=== PATIENT | male | born 1950 | race Caucasian/White ===

== ENCOUNTER 2017-11-19 12:14 | Inpatient (IN) | payer MEDICARE, MEDICAID ==
[~2017-11-19] VITALS: Ht 182.9 cm; Wt 69.1 kg
[2017-11-19] MEDS ORDERED: aspirin 81mg tab.chew PO ONE (12:50)
[2017-11-19] MEDS ORDERED: normal saline 1000ML IV soln IVB ONE ×2 (12:50→13:55)
[2017-11-19] MEDS: diatr meglu/diatrizoate 30ml oral sol.-(3 dose) bottle PO SCH ×3 (13:06→15:00)
[2017-11-19 13:13] LABS: BASOPHILS # (AUTO) 0.1 X10'3 (0-0.2); EOSINOPHILS # (AUTO) 0.5 X10'3 (0-0.9); EOSINOPHILS % (AUTO) 4.3 % (0-6); HEMATOCRIT 41.2 % (42.0-52.0); HEMOGLOBIN 13.8 g/dl (14.0-17.9); LYMPHOCYTES # (AUTO) 2.3 X10'3 (1.1-4.8); LYMPHOCYTES % (AUTO) 21.9 % (21-51); MEAN CORPUSCULAR HEMOGLOBIN 30.5 PG (27.0-31.0); MEAN CORPUSCULAR HGB CONC 33.4 % (33.0-36.5); MEAN CORPUSCULAR VOLUME 91.2 FL (78-98); MEAN PLATELET VOLUME 6.9 FL (7.4-10.4); MONOCYTES # (AUTO) 0.9 X10'3 (0-0.9); MONOCYTES % (AUTO) 8.9 % (2-12); NEUTROPHILS # (AUTO) 6.8 X10'3 (1.8-7.7); NEUTROPHILS % (AUTO) 63.9 % (42-75); PLATELET COUNT 389 X10'3 (140-440); RED BLOOD COUNT 4.52 X10'6 (4.70-6.10); WHITE BLOOD COUNT 10.6 X10'3 (4.5-11.0)
[2017-11-19 13:25] LABS: PARTIAL THROMBOPLASTIN TIME 27 SECONDS (22-32); PROTHROMBIN TIME 10.1 SECONDS (9.0-12.0)
[2017-11-19 13:32] LABS: ALANINE AMINOTRANSFERASE 36 U/L (12-78); ALBUMIN 3.3 G/DL (3.4-5.0); ALBUMIN/GLOBULIN RATIO 0.9 (1.1-1.5); ALKALINE PHOSPHATASE 74 IU/L (46-116); ANION GAP 11 (8-16); ASPARTATE AMINO TRANSFERASE 25 U/L (10-37); BILIRUBIN,TOTAL 0.3 MG/DL (0.1-1.0); BLOOD UREA NITROGEN 18 MG/DL (7-18); BUN/CREATININE RATIO 13.7 (5.4-32.0); CALCIUM 8.9 MG/DL (8.5-10.1); CHLORIDE 104 MMOL/L (99-107); CREATININE 1.31 MG/DL (0.60-1.10); GLUCOSE 87 MG/DL (70-104); MAGNESIUM 2.2 MG/DL (1.5-2.4); POTASSIUM 4.4 MMOL/L (3.5-5.1); SODIUM 141 MMOL/L (135-145); TOTAL CARBON DIOXIDE 25.7 MMOL/L (24-32); eGFR 55 ML/MIN
[2017-11-19] MEDS ORDERED: iohexol 350MG/ML 100ml bottle IV ONE (14:01)
[2017-11-19] MEDS ORDERED: NO HOME MEDS (15:56)
[2017-11-19] MEDS ORDERED: heparin 10,000 units/1 ML INJ IV ONE (16:00)
[2017-11-19] MEDS ORDERED: magnesium hydroxide 30ml (MOM) UD suspension PO PRN (16:45)
[2017-11-19] MEDS ORDERED: mag hydrox/Alum hydrox/simeth 30ml oral suspension PO PRN (16:45)
[2017-11-19] MEDS ORDERED: ondansetron/PF 4mg/2ml inj IV PRN (16:45)
[2017-11-19] MEDS ORDERED: morphine 4 MG/ML inj SYRINge IV PRN (16:45)
[2017-11-19] MEDS ORDERED: acetaminophen 325mg tablet PO PRN (16:45)
[2017-11-19 19:00] VITALS: BP 134/71
[2017-11-19] MEDS ORDERED: heparin 10,000 units/1 ML INJ IV PRN ×2 (19:15→19:20)
[2017-11-19 22:51] LABS: PARTIAL THROMBOPLASTIN TIME 54 SECONDS (22-32)
[2017-11-19 23:00] VITALS: BP 105/62
[2017-11-20 03:00] VITALS: BP 108/66
[2017-11-20 05:05] LABS: BASOPHILS # (AUTO) 0.1 X10'3 (0-0.2); BASOPHILS % (AUTO) 1.4 % (0-1); EOSINOPHILS # (AUTO) 0.6 X10'3 (0-0.9); EOSINOPHILS % (AUTO) 7.7 % (0-6); HEMATOCRIT 36.3 % (42.0-52.0); HEMOGLOBIN 12.4 g/dl (14.0-17.9); LYMPHOCYTES # (AUTO) 1.9 X10'3 (1.1-4.8); LYMPHOCYTES % (AUTO) 23.6 % (21-51); MEAN CORPUSCULAR HEMOGLOBIN 30.6 PG (27.0-31.0); MEAN CORPUSCULAR HGB CONC 34.2 % (33.0-36.5); MEAN CORPUSCULAR VOLUME 89.4 FL (78-98); NEUTROPHILS # (AUTO) 4.5 X10'3 (1.8-7.7); NEUTROPHILS % (AUTO) 55.3 % (42-75); PLATELET COUNT 310 X10'3 (140-440); RED BLOOD COUNT 4.07 X10'6 (4.70-6.10); RED CELL DISTRIBUTION WIDTH 13.8 % (11.5-14.5); WHITE BLOOD COUNT 8.1 X10'3 (4.5-11.0)
[2017-11-20 05:27] LABS: ALBUMIN 2.8 G/DL (3.4-5.0); ANION GAP 9 (8-16); BLOOD UREA NITROGEN 11 MG/DL (7-18); BUN/CREATININE RATIO 10.4 (5.4-32.0); CALCIUM 8.4 MG/DL (8.5-10.1); CHLORIDE 107 MMOL/L (99-107); CREATININE 1.06 MG/DL (0.60-1.10); GLUCOSE 89 MG/DL (70-104); POTASSIUM 4.3 MMOL/L (3.5-5.1); SODIUM 141 MMOL/L (135-145); TOTAL CARBON DIOXIDE 24.8 MMOL/L (24-32); eGFR 70 ML/MIN
[2017-11-20 06:00] VITALS: BP 113/61
[2017-11-20 11:00] VITALS: BP 101/60
[2017-11-20 15:00] VITALS: BP 103/60
[2017-11-20 19:00] VITALS: BP 113/72
[2017-11-20 23:00] VITALS: BP 102/65
[2017-11-21 03:00] VITALS: BP 111/72
[2017-11-21 06:00] VITALS: BP 103/60
[2017-11-21 06:04] LABS: BASOPHILS # (AUTO) 0.1 X10'3 (0-0.2); BASOPHILS % (AUTO) 1.4 % (0-1); EOSINOPHILS # (AUTO) 0.5 X10'3 (0-0.9); EOSINOPHILS % (AUTO) 5.8 % (0-6); HEMATOCRIT 36.3 % (42.0-52.0); HEMOGLOBIN 12.3 g/dl (14.0-17.9); LYMPHOCYTES # (AUTO) 2.3 X10'3 (1.1-4.8); LYMPHOCYTES % (AUTO) 27.7 % (21-51); MEAN CORPUSCULAR HEMOGLOBIN 30.4 PG (27.0-31.0); MEAN CORPUSCULAR HGB CONC 33.8 % (33.0-36.5); MEAN CORPUSCULAR VOLUME 89.9 FL (78-98); MEAN PLATELET VOLUME 6.9 FL (7.4-10.4); MONOCYTES % (AUTO) 12.1 % (2-12); NEUTROPHILS # (AUTO) 4.4 X10'3 (1.8-7.7); PLATELET COUNT 321 X10'3 (140-440); RED BLOOD COUNT 4.03 X10'6 (4.70-6.10); RED CELL DISTRIBUTION WIDTH 13.6 % (11.5-14.5); WHITE BLOOD COUNT 8.3 X10'3 (4.5-11.0)
[2017-11-21 06:09] LABS: ALBUMIN 2.8 G/DL (3.4-5.0); ANION GAP 6 (8-16); BLOOD UREA NITROGEN 11 MG/DL (7-18); BUN/CREATININE RATIO 8.9 (5.4-32.0); CALCIUM 8.5 MG/DL (8.5-10.1); CHLORIDE 107 MMOL/L (99-107); CREATININE 1.24 MG/DL (0.60-1.10); GLUCOSE 95 MG/DL (70-104); POTASSIUM 4.4 MMOL/L (3.5-5.1); SODIUM 140 MMOL/L (135-145); TOTAL CARBON DIOXIDE 27.3 MMOL/L (24-32); eGFR 59 ML/MIN
[2017-11-21 11:00] VITALS: BP 111/70
[2017-11-21] MEDS ORDERED: APIX5TAB3 PO (12:18)
== END 2017-11-21 15:25 | disposition home health service (06) | DRG 299 ==
LOC: ER 12:14 → ED HOLD 16:44 → PCU 3S 19:00
PROVIDERS: ADMIT Family Medicine; ATTEND Family Medicine
PROC: B3201ZZ Computerized Tomography (CT Scan) of Thoracic Aorta using Low Osmolar Contrast (ICD-10-PCS; principal; 2017-11-19)
PROC: BW211ZZ Computerized Tomography (CT Scan) of Abdomen and Pelvis using Low Osmolar Contrast (ICD-10-PCS; 2017-11-19)
DX: I82.442 Acute embolism and thrombosis of left tibial vein (principal); I26.99 Other pulmonary embolism without acute cor pulmonale; F17.210 Nicotine dependence, cigarettes, uncomplicated; Z79.01 Long term (current) use of anticoagulants; Z80.0 Family history of malignant neoplasm of digestive organs
CPT/HCPCS: 36415; 71046; 71275; 74177; 80048; 80053; 83735; 85025; 85610; 85730; 87070; 93306; 93971; 96360; 96361; 99285; J1644; J7030; Q9963; Q9967

== ENCOUNTER 2018-08-29 10:24 | Emergency (ER) | payer MEDICARE, OTHER ==
[~2018-08-29] VITALS: Ht 182.9 cm; Wt 72.7 kg
[~2018-08-29 10:24] MED LIST: APIX5TAB3 PO
[2018-08-29 11:16] LABS: BASOPHILS # (AUTO) 0.1 X10'3 (0-0.2); BASOPHILS % (AUTO) 1.2 % (0-1); EOSINOPHILS # (AUTO) 0.2 X10'3 (0-0.9); EOSINOPHILS % (AUTO) 2.6 % (0-6); HEMATOCRIT 44.8 % (42.0-52.0); HEMOGLOBIN 14.9 g/dl (14.0-17.9); LYMPHOCYTES # (AUTO) 2.2 X10'3 (1.1-4.8); LYMPHOCYTES % (AUTO) 28.5 % (21-51); MEAN CORPUSCULAR HEMOGLOBIN 29.3 PG (27.0-31.0); MEAN CORPUSCULAR HGB CONC 33.2 g/dL (33.0-36.5); MEAN PLATELET VOLUME 7.8 FL (7.4-10.4); MONOCYTES # (AUTO) 0.9 X10'3 (0-0.9); MONOCYTES % (AUTO) 10.9 % (2-12); NEUTROPHILS # (AUTO) 4.5 X10'3 (1.8-7.7); NEUTROPHILS % (AUTO) 56.8 % (42-75); PLATELET COUNT 227 X10'3 (140-440); RED BLOOD COUNT 5.09 X10'6 (4.70-6.10); RED CELL DISTRIBUTION WIDTH 14.6 % (11.5-14.5); WHITE BLOOD COUNT 7.9 X10'3 (4.5-11.0)
[2018-08-29 11:33] LABS: ALANINE AMINOTRANSFERASE 118 U/L (12-78); ALBUMIN 3.8 G/DL (3.4-5.0); ALBUMIN/GLOBULIN RATIO 1.1 (1.1-1.5); ALKALINE PHOSPHATASE 223 IU/L (46-116); ANION GAP 5 (8-16); ASPARTATE AMINO TRANSFERASE 51 U/L (10-37); BILIRUBIN,TOTAL 0.6 MG/DL (0.1-1.0); BLOOD UREA NITROGEN 14 MG/DL (7-18); BUN/CREATININE RATIO 11.8 (5.4-32.0); CALCIUM 9.4 MG/DL (8.5-10.1); CHLORIDE 102 MMOL/L (99-107); CREATININE 1.19 MG/DL (0.60-1.10); GLUCOSE 105 MG/DL (70-104); LIPASE 583 U/L (73-393); POTASSIUM 4.6 MMOL/L (3.5-5.1); SODIUM 137 MMOL/L (135-145); TOTAL CARBON DIOXIDE 29.7 MMOL/L (24-32); TOTAL PROTEIN 7.4 G/DL (6.4-8.2); eGFR 61 ML/MIN
[2018-08-29] MEDS ORDERED: cyclobenzaprine 10mg tablet PO ONE (11:35)
[2018-08-29] MEDS ORDERED: iohexol 300mg/ml 100ml inj. ONE (11:42)
[2018-08-29 12:49] LABS: CLARITY,URINE CLEAR (Clear); COLOR,URINE STRAW (Yellow); GLUCOSE, URINE NEGATIVE (Neg); KETONES,URINE NEGATIVE (Neg); LEUKOCYTE ESTERASE ,URINE NEGATIVE (Neg); NITRITES, URINE NEGATIVE (Neg); OCCULT BLOOD,URINE TRACE-INTACT (Neg); PROTEIN,URINE NEGATIVE (Neg); UROBILINOGEN,URINE 0.2 E.U/dL (0.2-1.0)
[2018-08-29 12:53] LABS: UA COLLECTION TYPE CLN CATCH MIDSTREAM
[2018-08-29 13:02] LABS: BACTERIA,URINE NONE SEEN /HPF (Neg); MUCUS STRANDS NONE SEEN /LPF (Neg); RBC,URINE 0-2 /HPF (0-2); SQUAMOUS EPITHELIAL CELL,UR NONE SEEN /LPF (FEW); WBC,URINE 0-4 /HPF (0-4)
[2018-08-29 13:06] VITALS: BP 117/84
[2018-08-29] MEDS ORDERED: CYCL-1 PO (13:12)
== END 2018-08-29 13:46 | disposition home or self-care (01) ==
LOC: ER 10:24
DX: R10.31 Right lower quadrant pain (principal); Z79.899 Other long term (current) drug therapy
CPT/HCPCS: 36415; 74177; 80053; 81001; 83690; 85025; 85610; 93005; 99284; Q9967

== ENCOUNTER 2018-09-26 11:36 | Emergency (ER) | payer MEDICARE, OTHER ==
[~2018-09-26] VITALS: Ht 182.9 cm; Wt 67.2 kg
[~2018-09-26 11:36] MED LIST changes: +CYCL-1 PO
[2018-09-26] MEDS ORDERED: ondansetron/PF 4mg/2ml inj IV ONE (12:20)
[2018-09-26] MEDS ORDERED: morphine 2 MG/ML inj. syringe IV ONE (12:20)
[2018-09-26 12:35] LABS: BASOPHILS # (AUTO) 0.1 X10'3 (0-0.2); BASOPHILS % (AUTO) 1.1 % (0-1); EOSINOPHILS # (AUTO) 0.1 X10'3 (0-0.9); EOSINOPHILS % (AUTO) 1.4 % (0-6); HEMATOCRIT 41.4 % (42.0-52.0); HEMOGLOBIN 13.9 g/dl (14.0-17.9); LYMPHOCYTES % (AUTO) 12.1 % (21-51); MEAN CORPUSCULAR HEMOGLOBIN 29.3 PG (27.0-31.0); MEAN CORPUSCULAR HGB CONC 33.6 g/dL (33.0-36.5); MEAN CORPUSCULAR VOLUME 87.2 FL (78-98); MEAN PLATELET VOLUME 7.1 FL (7.4-10.4); MONOCYTES # (AUTO) 1.2 X10'3 (0-0.9); MONOCYTES % (AUTO) 14.5 % (2-12); NEUTROPHILS # (AUTO) 5.6 X10'3 (1.8-7.7); NEUTROPHILS % (AUTO) 70.9 % (42-75); PLATELET COUNT 225 X10'3 (140-440); RED BLOOD COUNT 4.75 X10'6 (4.70-6.10); RED CELL DISTRIBUTION WIDTH 14.3 % (11.5-14.5); WHITE BLOOD COUNT 7.9 X10'3 (4.5-11.0)
[2018-09-26 12:50] LABS: ALANINE AMINOTRANSFERASE 134 U/L (12-78); ALBUMIN 3.3 G/DL (3.4-5.0); ALBUMIN/GLOBULIN RATIO 0.9 (1.1-1.5); ALKALINE PHOSPHATASE 334 IU/L (46-116); ANION GAP 4 (8-16); ASPARTATE AMINO TRANSFERASE 73 U/L (10-37); BLOOD UREA NITROGEN 15 MG/DL (7-18); BUN/CREATININE RATIO 10.6 (5.4-32.0); CALCIUM 8.9 MG/DL (8.5-10.1); CHLORIDE 91 MMOL/L (99-107); CREATININE 1.42 MG/DL (0.60-1.10); GLUCOSE 131 MG/DL (70-104); POTASSIUM 4.3 MMOL/L (3.5-5.1); SODIUM 124 MMOL/L (135-145); TOTAL PROTEIN 6.9 G/DL (6.4-8.2); eGFR 50 ML/MIN
[2018-09-26 12:53] LABS: TROPONIN I < 0.04 NG/ML (0.0-0.05)
[2018-09-26] MEDS ORDERED: morphine 4 MG/ML inj SYRINge IV ONE ×2 (14:10→17:40)
[2018-09-26 14:14] LABS: CLARITY,URINE CLEAR (Clear); COLOR,URINE YELLOW (Yellow); GLUCOSE, URINE NEGATIVE (Neg); KETONES,URINE TRACE mg/dl (Neg); LEUKOCYTE ESTERASE ,URINE NEGATIVE (Neg); NITRITES, URINE NEGATIVE (Neg); OCCULT BLOOD,URINE TRACE-INTACT (Neg); PH,URINE 6.5 (4.8-8.0); PROTEIN,URINE NEGATIVE (Neg); UROBILINOGEN,URINE 0.2 E.U/dL (0.2-1.0)
[2018-09-26 14:16] LABS: UA COLLECTION TYPE CLN CATCH MIDSTREAM
[2018-09-26 14:28] LABS: BACTERIA,URINE NONE SEEN /HPF (Neg); MUCUS STRANDS NONE SEEN /LPF (Neg); RBC,URINE 0-2 /HPF (0-2); SQUAMOUS EPITHELIAL CELL,UR NONE SEEN /LPF (FEW); WBC,URINE NONE SEEN /HPF (0-4)
[2018-09-26] MEDS ORDERED: ketorolac tromethamine 15mg/ml inj. IV ONE (14:30)
[2018-09-26 14:38] VITALS: BP 125/88
[2018-09-26] MEDS ORDERED: iohexol 350MG/ML 100ml bottle IV ONE (15:38)
[2018-09-26] MEDS ORDERED: FLO0.4C PO (17:42)
[2018-09-26] MEDS ORDERED: HYDR-3965 PO (17:42)
== END 2018-09-26 17:58 | disposition home or self-care (01) ==
LOC: ER 11:36
DX: R10.9 Unspecified abdominal pain (principal); M54.9 Dorsalgia, unspecified; G89.29 Other chronic pain; K59.00 Constipation, unspecified; R53.83 Other fatigue; Z79.899 Other long term (current) drug therapy; Z87.891 Personal history of nicotine dependence; Z85.038 Personal history of other malignant neoplasm of large intestine
CPT/HCPCS: 36415; 71045; 71275; 74177; 80053; 81001; 84484; 85025; 96374; 96375; 96376; 99284; J1885; J2270; J2405; Q9967

== ENCOUNTER 2018-11-20 06:31 | Day surgery (SDC) | payer MEDICARE, OTHER ==
[~2018-11-20] VITALS: Ht 182.9 cm; Wt 62.4 kg
[2018-11-20] VITALS (16 sets, daily range): BP systolic 91–139; BP diastolic 61–79
[2018-11-20] MEDS ORDERED: normal saline 1000ml 1,000 ML IV PRN (07:00)
[2018-11-20 07:40] LABS: BASOPHILS # (AUTO) 0.2 X10'3 (0-0.2); EOSINOPHILS # (AUTO) 0.2 X10'3 (0-0.9); EOSINOPHILS % (AUTO) 0.8 % (0-6); HEMATOCRIT 40.8 % (42.0-52.0); HEMOGLOBIN 13.6 g/dl (14.0-17.9); LYMPHOCYTES # (AUTO) 1.8 X10'3 (1.1-4.8); LYMPHOCYTES % (AUTO) 9.5 % (21-51); MEAN CORPUSCULAR HEMOGLOBIN 29.7 PG (27.0-31.0); MEAN CORPUSCULAR HGB CONC 33.4 g/dL (33.0-36.5); MEAN CORPUSCULAR VOLUME 88.7 FL (78-98); MEAN PLATELET VOLUME 6.7 FL (7.4-10.4); MONOCYTES # (AUTO) 1.8 X10'3 (0-0.9); MONOCYTES % (AUTO) 9.4 % (2-12); NEUTROPHILS % (AUTO) 79.3 % (42-75); PLATELET COUNT 363 X10'3 (140-440); RED BLOOD COUNT 4.59 X10'6 (4.70-6.10); RED CELL DISTRIBUTION WIDTH 15.3 % (11.5-14.5); WHITE BLOOD COUNT 18.9 X10'3 (4.5-11.0)
[2018-11-20] MEDS ORDERED: OXYC-150 PO (07:48)
[2018-11-20 07:49] LABS: ALBUMIN 2.7 G/DL (3.4-5.0); ANION GAP 12 (8-16); BLOOD UREA NITROGEN 18 MG/DL (7-18); BUN/CREATININE RATIO 16.7 (5.4-32.0); CALCIUM 8.7 MG/DL (8.5-10.1); CHLORIDE 86 MMOL/L (99-107); CREATININE 1.08 MG/DL (0.60-1.10); GLUCOSE 117 MG/DL (70-104); SODIUM 122 MMOL/L (135-145); eGFR 68 ML/MIN
[2018-11-20] MEDS ORDERED: BICA50TA7 PO (07:49)
[2018-11-20] MEDS ORDERED: HYDR-4353 PO (07:49)
[2018-11-20 07:53] LABS: POTASSIUM 4.9 MMOL/L (3.5-5.1)
[2018-11-20] MEDS ORDERED: midazolam 2 mg/2 ml injection ONE (08:13)
[2018-11-20] MEDS ORDERED: fentaNYL/PF 50MCG/1 ML 2ML syringe ONE (08:13)
[2018-11-20] MEDS ORDERED: gelatin sponge, absorbable (Gelfoam 12-7MM) sponge TP ONE (08:43)
[2018-11-20] MEDS ORDERED: HYDROcodone/acetaminophen 5mg/325mg tablet PO PRN ×2 (09:00)
[2018-11-20 11:35] LABS: TOTAL CELLS COUNTED 100
[2018-11-20 11:36] LABS: PLATELET ESTIMATE NORMAL
[2018-11-20] MEDS ORDERED: gelatin sponge, absorbable (Gelfoam 100) sponge TP ONE (15:20)
[2018-12-01] MEDS ORDERED: APIX2.5T PO (07:17)
[2018-12-01] MEDS ORDERED: MORP-92 PO (07:17)
[2018-12-01] MEDS ORDERED: HYDROMORPHONE PO (07:17)
== END 2018-11-20 13:00 | disposition home or self-care (01) ==
LOC: SSTAY O 06:31
PROVIDERS: ATTEND Radiology Vascular & Interventional Radiology
DX: K73.9 Chronic hepatitis, unspecified (principal); K76.0 Fatty (change of) liver, not elsewhere classified; K76.89 Other specified diseases of liver; F17.290 Nicotine dependence, other tobacco product, uncomplicated; Z98.890 Other specified postprocedural states; Z79.899 Other long term (current) drug therapy
CPT/HCPCS: 36415; 47000; 77012; 80048; 85025; 85610; 88341; 88342; 99152; 99153; J2250; J3010; J7030; 88307; 88313

== ENCOUNTER 2018-12-01 09:56 | Inpatient (IN) | payer MEDICARE, OTHER ==
[~2018-12-01] VITALS: Ht 185.4 cm; Wt 54.0 kg
[~2018-12-01 09:56] MED LIST changes: -HYDR4TAB45 PO; -normal saline 1000ml 1,000 ML IV ONE; -normal saline 1000ml 1,000 ML IV SCH
--- NOTE | 2018-12-01 10:59 | NUR ---
AM LABS PRINTED AND ON CHART
[2018-12-01] MEDS ORDERED: CefTRIAXone 2gm/D5W 50ml 50 ML IV ONE (11:05)
[2018-12-01 11:31] LABS: BASOPHILS # (AUTO) 0.1 X10'3 (0-0.2); BASOPHILS % (AUTO) 0.4 % (0-1); EOSINOPHILS # (AUTO) 0.1 X10'3 (0-0.9); EOSINOPHILS % (AUTO) 0.2 % (0-6); HEMATOCRIT 38.8 % (42.0-52.0); LYMPHOCYTES # (AUTO) 0.9 X10'3 (1.1-4.8); LYMPHOCYTES % (AUTO) 3.9 % (21-51); MEAN CORPUSCULAR HEMOGLOBIN 29.8 PG (27.0-31.0); MEAN CORPUSCULAR HGB CONC 33.6 g/dL (33.0-36.5); MEAN CORPUSCULAR VOLUME 88.6 FL (78-98); MEAN PLATELET VOLUME 6.6 FL (7.4-10.4); MONOCYTES # (AUTO) 1.4 X10'3 (0-0.9); MONOCYTES % (AUTO) 6.3 % (2-12); NEUTROPHILS # (AUTO) 19.8 X10'3 (1.8-7.7); NEUTROPHILS % (AUTO) 89.2 % (42-75); PLATELET COUNT 251 X10'3 (140-440); RED BLOOD COUNT 4.38 X10'6 (4.70-6.10); RED CELL DISTRIBUTION WIDTH 15.8 % (11.5-14.5); WHITE BLOOD COUNT 22.2 X10'3 (4.5-11.0)
--- NOTE | 2018-12-01 11:40 | NUR ---
TO CT SCAN VIA GUERMEGAN WITH TECH
[2018-12-01 11:48] LABS: PARTIAL THROMBOPLASTIN TIME 25 SECONDS (22-32)
[2018-12-01 12:01] LABS: ALANINE AMINOTRANSFERASE 125 U/L (12-78); ALBUMIN 2.3 G/DL (3.4-5.0); ALBUMIN/GLOBULIN RATIO 0.6 (1.1-1.5); ANION GAP 11 (8-16); ASPARTATE AMINO TRANSFERASE 127 U/L (10-37); BILIRUBIN,TOTAL 4.2 MG/DL (0.1-1.0); BLOOD UREA NITROGEN 33 MG/DL (7-18); CALCIUM 8.1 MG/DL (8.5-10.1); CHLORIDE 94 MMOL/L (99-107); CREATININE 1.27 MG/DL (0.60-1.10); GLUCOSE 160 MG/DL (70-104); MAGNESIUM 2.3 MG/DL (1.5-2.4); POTASSIUM 4.9 MMOL/L (3.5-5.1); SODIUM 131 MMOL/L (135-145); TOTAL CARBON DIOXIDE 25.6 MMOL/L (24-32); TOTAL PROTEIN 5.9 G/DL (6.4-8.2); TROPONIN I < 0.04 NG/ML (0.0-0.05); eGFR 57 ML/MIN
[2018-12-01 12:03] LABS: ETHANOL < 0.010 GM/DL (0.0-0.010)
[2018-12-01 12:21] LABS: ALKALINE PHOSPHATASE 3340 IU/L (46-116)
[2018-12-01 12:40] LABS: URINE AMPHETAMINE SCREEN NEGATIVE (Neg); URINE BARBITUATE SCREEN NEGATIVE (Neg); URINE BENZODIAZEPINES SCREEN NEGATIVE (Neg); URINE CANNABINOID SCREEN POSITIVE (Neg); URINE COCAINE SCREEN NEGATIVE (Neg); URINE METHADONE SCREEN NEGATIVE (Neg); URINE OPIATE SCREEN POSITIVE (Neg); URINE PHENCYCLIDINE SCREEN NEGATIVE (Neg)
[2018-12-01 12:50] LABS: CLARITY,URINE CLOUDY (Clear); GLUCOSE, URINE NEGATIVE (Neg); KETONES,URINE 15 mg/dl (Neg); LEUKOCYTE ESTERASE ,URINE NEGATIVE (Neg); NITRITES, URINE NEGATIVE (Neg); OCCULT BLOOD,URINE LARGE (Neg); PROTEIN,URINE 30 mg/dl (Neg)
--- NOTE | 2018-12-01 12:55 | NUR ---
HYDROMORPHONE 4 MG TAB HOME MED AT BEDSIDE. OKD BY DR. MENJIVAR PAIN ON PAINSCALE 12/23
[2018-12-01 12:57] LABS: COLOR,URINE AMBER (Yellow); UA COLLECTION TYPE CLN CATCH MIDSTREAM
[2018-12-01 13:01] LABS: AMORPHOUS URATES 1+; BACTERIA,URINE NONE SEEN /HPF (Neg); HYALINE CASTS 0-3 /LPF (NEGATIVE); MUCUS STRANDS FEW /LPF (Neg); RBC,URINE TNTC /HPF (0-2); SQUAMOUS EPITHELIAL CELL,UR FEW /LPF (FEW); TRANSITIONAL EPI CELLS,URINE FEW /HPF; WBC,URINE 0-4 /HPF (0-4)
[2018-12-01 13:02] LABS: FINE GRANULAR CAST 0-3 /LPF (NEGATIVE)
[2018-12-01 13:03] LABS: RENAL CELLS, URINE FEW /HPF
[2018-12-01] MEDS ORDERED: normal saline 1000ML IV soln IVB ONE (13:05)
[2018-12-01] MEDS ORDERED: HYDR4TAB45 PO (13:26)
[2018-12-01] MEDS ORDERED: magnesium hydroxide 30ml (MOM) UD suspension PO PRN (13:30)
[2018-12-01] MEDS ORDERED: morphine 2 MG/ML inj. syringe IV PRN (13:30)
[2018-12-01] MEDS ORDERED: ondansetron/PF 4mg/2ml inj IV PRN (13:30)
[2018-12-01] MEDS ORDERED: acetaminophen 325mg tablet PO PRN ×2 (13:30)
[2018-12-01] MEDS ORDERED: HYDROcodone/acetaminophen 5mg/325mg tablet PO PRN (13:30)
[2018-12-01] MEDS ORDERED: mag hydrox/Alum hydrox/simeth 30ml oral suspension PO PRN (13:30)
[2018-12-01 17:35] VITALS: BP 142/91
[2018-12-01] MEDS: normal saline 1000ml 1,000 ML IV SCH ×2 (17:42→23:26)
--- NOTE | 2018-12-01 18:38 | NUR ---
Patient in room PCU 3025g. I have received report from RUFUS Zaldivar and had the opportunity to ask questions and assume patient care. Patient observed to be shouting out and is confused at this time. Patient keeps stating, "what the hell is going on?!" Patient has not consumed evening meal. PCT to assist in feeding patient, but no orders for feeder at this time. Will continue to monitor closely.
[2018-12-01 19:00] VITALS: BP 133/86
[2018-12-01] MEDS: apixaban 2.5mg tablet PO SCH (20:41)
[2018-12-01] MEDS: morphine ER 15mg tablet PO SCH (20:41)
[2018-12-01] MEDS: docusate sod 100mg capsule PO SCH (20:41)
[2018-12-01 23:00] VITALS: BP 114/65
[2018-12-01] MEDS: morphine 2 MG/ML inj. syringe IV PRN (23:16)
[2018-12-02 03:00] VITALS: BP 117/77
[2018-12-02 05:14] LABS: BASOPHILS % (AUTO) 0.3 % (0-1); EOSINOPHILS # (AUTO) 0.1 X10'3 (0-0.9); EOSINOPHILS % (AUTO) 0.9 % (0-6); HEMATOCRIT 35.7 % (42.0-52.0); HEMOGLOBIN 11.9 g/dl (14.0-17.9); LYMPHOCYTES % (AUTO) 6.3 % (21-51); MEAN CORPUSCULAR HEMOGLOBIN 29.6 PG (27.0-31.0); MEAN CORPUSCULAR HGB CONC 33.3 g/dL (33.0-36.5); MEAN CORPUSCULAR VOLUME 88.9 FL (78-98); MEAN PLATELET VOLUME 6.9 FL (7.4-10.4); MONOCYTES # (AUTO) 1.3 X10'3 (0-0.9); NEUTROPHILS # (AUTO) 13.3 X10'3 (1.8-7.7); NEUTROPHILS % (AUTO) 84.5 % (42-75); PLATELET COUNT 204 X10'3 (140-440); RED BLOOD COUNT 4.02 X10'6 (4.70-6.10); WHITE BLOOD COUNT 15.7 X10'3 (4.5-11.0)
[2018-12-02 05:19] LABS: ALBUMIN 2.1 G/DL (3.4-5.0); ANION GAP 9 (8-16); BLOOD UREA NITROGEN 31 MG/DL (7-18); BUN/CREATININE RATIO 30.4 (5.4-32.0); CHLORIDE 102 MMOL/L (99-107); CREATININE 1.02 MG/DL (0.60-1.10); GLUCOSE 146 MG/DL (70-104); POTASSIUM 4.5 MMOL/L (3.5-5.1); SODIUM 137 MMOL/L (135-145); TOTAL CARBON DIOXIDE 26.3 MMOL/L (24-32); eGFR 73 ML/MIN
[2018-12-02] MEDS: normal saline 1000ml 1,000 ML IV SCH ×2 (06:36→19:26)
--- NOTE | 2018-12-02 06:37 | NUR ---
Patient in room PCU 3027. I have received report from Lenin HOOPER and had the opportunity to ask questions and assume patient care.
--- NOTE | 2018-12-02 06:39 | NUR ---
Problems reprioritized. Patient report given, questions answered & plan of care reviewed with RUFUS Gutierrez and RUFUS Flaherty.
[2018-12-02 07:00] VITALS: BP 118/76
[2018-12-02] MEDS: morphine ER 15mg tablet PO SCH ×2 (07:51→20:19)
[2018-12-02] MEDS: apixaban 2.5mg tablet PO SCH ×2 (07:51→20:13)
[2018-12-02] MEDS: docusate sod 100mg capsule PO SCH ×2 (07:51→20:13)
[2018-12-02] MEDS: morphine 2 MG/ML inj. syringe IV PRN ×3 (07:56→22:18)
[2018-12-02] MEDS ORDERED: BICALUTAMIDE PO SCH (08:00)
[2018-12-02 11:00] VITALS: BP 122/79
--- NOTE | 2018-12-02 12:02 | NUR ---
Paged hospitalist "Brenda [phone]- Room 3027 Javier Buchanan-please call bhavin (nonemergent) thank you" Waiting transportation planning engineer back
--- NOTE | 2018-12-02 13:30 | NUR ---
Paged hospitalist again, "bernadette [phone]- room 3027 A please call bhavin regarding elevated heartrate" Wish to make him aware of ST sustained. Received callback from , made aware of ST 130's, states to obtain EKG to confirm ST, if HR doesn't resolve in a few hours (2 hours) then call back. Also received orders for M.O.M 30 ml BID r/t constipation, patient family states hasn't had BM in 2 weeks. Noted poor appetite and 50 lbs recent wt. loss.
--- NOTE | 2018-12-02 14:13 | NUR ---
Paged hospitalist for an FYI message, "bernadette [phone]- FYI room 1651T Javier Monet EKG was indeed ST, will monitor and let you know if sustained passed 2 hours."
[2018-12-02 15:00] VITALS: BP 116/72
--- NOTE | 2018-12-02 15:59 | NUR ---
Malnutrition consult: Per documented wt hx pt -38 lbs since November 2017, this is severe wt loss of 25% in one year. Pt previously on regular diet which was changed to pureed diet with no BSS, ST has been consulted. Pt documented with 50/25/100% PO intake x 1 meal however with 0% PO intake x 2 meals. Attempted visit with pt at bedside however pt was sleeping and did not wake with verbal cues. Pt with visible fat and muscle wasting. Pt meets criteria for malnutrition, MD notified. Pt would benefit from ONS, will f/u for appropriate ONS pending BSS. Pt brought in to get a Port-A-Cath placed by IR and admit for concerns for possible sepsis. Pt with hx of stage IV colon cancer with liver metastases and pt awaiting chemo d/t possible prostate cancer with bone mets per H&P. Pt with low Binh of 12, per physical assessment with reddened sacrum, wound care has been consulted. Pt provided with written protein education and malnutrition education with recommendations for ONS following discharge, ONS coupons, and RD contact information. Per RN notes patient's family reporting no BM x 2 weeks however pt documented with LBM 12/01 per pt statement. Routine Colace and MoM has been added to med list. Will continue to follow. Recommendations: 1) Advance diet per ST recs pending BSS 2) Provide appropriate ONS pending BSS 3) Routine bowel care 4) Wt per rx Addendum: 12/02/18 at [address] Amended: Links added.
--- NOTE | 2018-12-02 16:07 | NUR ---
Called wound care nursing for consult now that pictures have been taken.
--- NOTE | 2018-12-02 17:24 | NUR ---
Paged , "bernadette [phone]- heart rate sustained ST for room 3027 A, orders?" Waiting on callback, wish to make MD aware of HR sustained low 120's.
--- NOTE | 2018-12-02 17:45 | NUR ---
Paged hospitalist again, waiting on callback
--- NOTE | 2018-12-02 18:16 | NUR ---
Problems reprioritized. Patient report given, questions answered & plan of care reviewed with Lenin HOOPER.
[2018-12-02 19:00] VITALS: BP 117/72
--- NOTE | 2018-12-02 19:01 | NUR ---
Patient in room PCU 4296p. I have received report from RUFUS Gutierrez and had the opportunity to ask questions and assume patient care. Patient asleep for bedside report and stable at this time. 20G L FA with 100 mL/NS infusing per provider order. 3L NC. RN assisted with evening meal. Will continue to monitor closely.
--- NOTE | 2018-12-02 19:34 | NUR ---
Dr. Torres notified of patient's elevated HR of 122 at 1900. No new orders at this time. Will continue to monitor closely.
[2018-12-02] MEDS: magnesium hydroxide 30ml (MOM) UD suspension PO SCH (20:13)
--- NOTE | 2018-12-02 22:46 | NUR ---
weed science research technician observed patient's HR in 140's at 2130. At this time patient was being repositioned by nursing staff. 2199 140 HR sustained. 2mg/1mL Morphine IV administered. 2229 139 HR sustained. Telephone call to Dr. Torres with no answer. Will attempt to call again in 10 minutes.
[2018-12-02 23:00] VITALS: BP 115/75
--- NOTE | 2018-12-02 23:00 | NUR ---
Spoke to Dr. Torres via telephone. No new orders at this time. Will continue to monitor closely.
[2018-12-03] VITALS (7 sets, daily range): BP systolic 109–135; BP diastolic 66–88
[2018-12-03] MEDS: HYDROcodone/acetaminophen 10/325mg tab PO PRN ×3 (00:47→21:20)
[2018-12-03] MEDS: normal saline 1000ml 1,000 ML IV SCH ×2 (03:28→14:05)
[2018-12-03] MEDS: morphine 2 MG/ML inj. syringe IV PRN ×2 (04:23→10:21)
[2018-12-03 04:48] LABS: BASOPHILS # (AUTO) 0.1 X10'3 (0-0.2); BASOPHILS % (AUTO) 0.5 % (0-1); EOSINOPHILS % (AUTO) 0.2 % (0-6); HEMATOCRIT 35.3 % (42.0-52.0); HEMOGLOBIN 11.7 g/dl (14.0-17.9); LYMPHOCYTES # (AUTO) 0.9 X10'3 (1.1-4.8); LYMPHOCYTES % (AUTO) 5.7 % (21-51); MEAN CORPUSCULAR HEMOGLOBIN 29.8 PG (27.0-31.0); MEAN CORPUSCULAR HGB CONC 33.1 g/dL (33.0-36.5); MEAN PLATELET VOLUME 7.1 FL (7.4-10.4); MONOCYTES % (AUTO) 6.3 % (2-12); NEUTROPHILS # (AUTO) 13.5 X10'3 (1.8-7.7); NEUTROPHILS % (AUTO) 87.3 % (42-75); PLATELET COUNT 199 X10'3 (140-440); RED BLOOD COUNT 3.92 X10'6 (4.70-6.10); RED CELL DISTRIBUTION WIDTH 16.3 % (11.5-14.5); WHITE BLOOD COUNT 15.4 X10'3 (4.5-11.0)
[2018-12-03 05:12] LABS: ALBUMIN 2.1 G/DL (3.4-5.0); ANION GAP 9 (8-16); BLOOD UREA NITROGEN 30 MG/DL (7-18); BUN/CREATININE RATIO 31.6 (5.4-32.0); CALCIUM 8.1 MG/DL (8.5-10.1); CHLORIDE 105 MMOL/L (99-107); CREATININE 0.95 MG/DL (0.60-1.10); GLUCOSE 167 MG/DL (70-104); POTASSIUM 4.7 MMOL/L (3.5-5.1); SODIUM 142 MMOL/L (135-145); TOTAL CARBON DIOXIDE 28.5 MMOL/L (24-32); eGFR 79 ML/MIN
[2018-12-03 05:59] LABS: TOTAL CELLS COUNTED 100
[2018-12-03 06:02] LABS: ANISOCYTOSIS 1+; PLATELET ESTIMATE NORMAL
--- NOTE | 2018-12-03 06:37 | NUR ---
Problems reprioritized. Patient report given, questions answered & plan of care reviewed with RUFUS Abbott.
--- NOTE | 2018-12-03 07:45 | NUR ---
Patient in room PCU 3027. I have received report from Lenin HOOPER and had the opportunity to ask questions and assume patient care.
--- NOTE | 2018-12-03 07:56 | NUR ---
Patient in room PCU 3027. I have received report from Lenin HOOPER and had the opportunity to ask questions and assume patient care.
[2018-12-03] MEDS: morphine ER 15mg tablet PO SCH ×2 (08:05→20:06)
[2018-12-03] MEDS: CefTRIAXone 2gm/D5W 50ml 50 ML IV SCH (09:48)
[2018-12-03] MEDS: docusate sod 100mg capsule PO SCH ×2 (09:48→20:06)
[2018-12-03] MEDS: apixaban 2.5mg tablet PO SCH ×2 (09:48→20:06)
[2018-12-03] MEDS: magnesium hydroxide 30ml (MOM) UD suspension PO SCH ×2 (09:48→20:06)
[2018-12-03] MEDS: guaiFENesin ER 600mg tablet PO SCH ×2 (11:07→20:06)
[2018-12-03] MEDS: azithromycin/NS 500mg/250ml 250 ML IV SCH (11:21)
--- NOTE | 2018-12-03 11:22 | NUR ---
F/u: Pt s/p BSS 12/[address] andre to continue pureed food with thin liquids and states pt needs reminders to sit up when eating and drinking. Pt would benefit from Ensure Enlive SWATHI, notified. [facility]NS to be sent [facility] Recommend Ensure pudding TID to provide additional kcal, dietary notified. Addendum: 12/03/18 at [address] Amended: Links added.
--- NOTE | 2018-12-03 13:50 | NUR ---
Calorie Count: Pt refused lunch today w/ 0-25% documented PO in EMR. Not receiving meal sheets from floor so unable to calculate exact kcals but pt clearly not meeting needs. Ensure pudding TIDWM and pending MD verification for ensure enlive TIDWM to be sent on trays. Addendum: 12/03/18 at [address] Amended: Links added.
--- NOTE | 2018-12-03 17:03 | NUR ---
Notified secretary to board of commissioners to order [employer]a bed 2 bed per Wound care recommendations.
[2018-12-03] MEDS ORDERED: ipratropium/albuterol 3ml nebule NEB PRN (17:40)
[2018-12-03] MEDS: lactose-reduced food (Ensure Enlive) - 237ml bottle PO SCH (18:00)
--- NOTE | 2018-12-03 18:56 | NUR ---
Problems reprioritized. Patient report given, questions answered & plan of care reviewed with SEE HOOPER.
[2018-12-04] MEDS: normal saline 1000ml 1,000 ML IV SCH (00:04)
[2018-12-04] MEDS: morphine 2 MG/ML inj. syringe IV PRN (01:50)
[2018-12-04 02:00] VITALS: BP 103/82
[2018-12-04 06:00] VITALS: BP 128/82
--- NOTE | 2018-12-04 06:00 | NUR ---
Patient in room PCU 3010. I have received report from Lyndsay HOOPER and had the opportunity to ask questions and assume patient care.
[2018-12-04 06:11] LABS: ANION GAP 8 (8-16); BLOOD UREA NITROGEN 27 MG/DL (7-18); BUN/CREATININE RATIO 32.9 (5.4-32.0); CALCIUM 8.2 MG/DL (8.5-10.1); CHLORIDE 111 MMOL/L (99-107); CREATININE 0.82 MG/DL (0.60-1.10); GLUCOSE 169 MG/DL (70-104); POTASSIUM 4.6 MMOL/L (3.5-5.1); SODIUM 146 MMOL/L (135-145); TOTAL CARBON DIOXIDE 26.7 MMOL/L (24-32); eGFR > 90 ML/MIN
[2018-12-04 06:16] LABS: BASOPHILS % (AUTO) 0.3 % (0-1); EOSINOPHILS % (AUTO) 0.3 % (0-6); HEMATOCRIT 34.8 % (42.0-52.0); HEMOGLOBIN 11.6 g/dl (14.0-17.9); LYMPHOCYTES # (AUTO) 0.7 X10'3 (1.1-4.8); LYMPHOCYTES % (AUTO) 7.1 % (21-51); MEAN CORPUSCULAR HEMOGLOBIN 30.4 PG (27.0-31.0); MEAN CORPUSCULAR HGB CONC 33.3 g/dL (33.0-36.5); MEAN CORPUSCULAR VOLUME 91.3 FL (78-98); MONOCYTES # (AUTO) 0.7 X10'3 (0-0.9); MONOCYTES % (AUTO) 7.5 % (2-12); NEUTROPHILS # (AUTO) 8.2 X10'3 (1.8-7.7); NEUTROPHILS % (AUTO) 84.8 % (42-75); PLATELET COUNT 163 X10'3 (140-440); RED BLOOD COUNT 3.81 X10'6 (4.70-6.10); RED CELL DISTRIBUTION WIDTH 16.5 % (11.5-14.5); WHITE BLOOD COUNT 9.7 X10'3 (4.5-11.0)
--- NOTE | 2018-12-04 06:49 | NUR ---
Problems reprioritized. Patient report given, questions answered & plan of care reviewed with RUFUS Mcconnell.
[2018-12-04 10:01] LABS: TOTAL CELLS COUNTED 100
[2018-12-04 10:06] LABS: ANISOCYTOSIS 1+; PLATELET ESTIMATE NORMAL; TOXIC GRANULATION 1+
[2018-12-04] MEDS: guaiFENesin ER 600mg tablet PO SCH ×2 (10:12→20:16)
[2018-12-04] MEDS: morphine ER 15mg tablet PO SCH ×2 (10:12→20:16)
[2018-12-04] MEDS: CefTRIAXone 2gm/D5W 50ml 50 ML IV SCH (10:12)
[2018-12-04] MEDS: magnesium hydroxide 30ml (MOM) UD suspension PO SCH ×2 (10:12→20:16)
[2018-12-04] MEDS: docusate sod 100mg capsule PO SCH ×2 (10:12→20:16)
[2018-12-04] MEDS: apixaban 2.5mg tablet PO SCH ×2 (10:12→20:15)
[2018-12-04 11:00] VITALS: BP 92/64
[2018-12-04] MEDS: azithromycin/NS 500mg/250ml 250 ML IV SCH (11:47)
[2018-12-04] MEDS ORDERED: normal saline 1000ml 1,000 ML IV ONE (14:45)
--- NOTE | 2018-12-04 14:55 | NUR ---
Calorie count: Pending detailed documentation from RN. Per RN pt only took a few bites at lunch today with patient's SO assisting in eating however nurses aide to encourage pt to eat more and further assist with eating. Pt documented with only 50% PO intake of starch at breakfast this morning and 25% PO intake at dinner last night. Pt not meeting nutrient needs with PO intake. ONS still pending MD verification in [facility]. [facility] 11/27 with routine Colace and MoM, recommend prune juice with dinner, d/w dietary. Addendum: 12/04/18 at [address] Amended: Links added.
[2018-12-04 15:00] VITALS: BP 96/62
--- NOTE | 2018-12-04 15:39 | NUR ---
PAGER ID: [phone] MESSAGE: [phone] MELINDA- RAPID BEING CALLED FOR O2 SAT, LOW BP, MOTTLING TO BLE. MARLIOU HARRIS Addendum: 12/04/18 at 1539 by Marilou Rivero RN Amended: Links added.
[2018-12-04 16:01] LABS: ABG BASE EXCESS 0.9 mmol/L (-2.0-3.0); ABG HCO3 29.6 mmol/L (22.0-26.0); ABG OXYGEN SATURATION 97.9 % (95-98); ABG PCO2 (T) 68.3 mmHg (35.0-45.0); ABG PH (T) 7.254 (7.350-7.450); ABG PO2 (T) 119.8 mmHg (83-108); ALLEN'S TEST Positive; FCOHb 0.3 % (0.5-1.5); FLOW 15 L/min; FMetHb 0.4 % (0.3-1.12); FO2Hb 97.2 % (94-100); TOTAL HEMOGLOBIN 12.3 G/dl (14.0-17.9)
--- NOTE | 2018-12-04 16:19 | NUR ---
Second page to Dr Blackwell re:Room 3010 lenny Haddad was called bipap and IV Lasix requested by ICU nurse, please advise Enedina [phone], first page was sent by Berna HOOPER
[2018-12-04 17:14] LABS: TROPONIN I < 0.04 NG/ML (0.0-0.05)
[2018-12-04 17:35] LABS: ABG BASE EXCESS 3.5 mmol/L (-2.0-3.0); ABG HCO3 29.5 mmol/L (22.0-26.0); ABG PCO2 (T) 51.1 mmHg (35.0-45.0); ABG PH (T) 7.379 (7.350-7.450); ABG PO2 (T) 62.9 mmHg (83-108); ALLEN'S TEST Positive; FCOHb 0.3 % (0.5-1.5); FMetHb 0.2 % (0.3-1.12); FO2Hb 92.5 % (94-100); MINUTE VOLUME 16 L/min; RESPIRATORY RATE 16 b/min; RESPIRATORY RATE (OBSERVED) 35 b/min; TOTAL HEMOGLOBIN 11.9 G/dl (14.0-17.9)
--- NOTE | 2018-12-04 18:00 | NUR ---
Problems reprioritized. Patient report given, questions answered & plan of care reviewed with Arjun HOOPER.
[2018-12-04 19:00] VITALS: BP 111/71
[2018-12-04] MEDS: lactobacillus rhamnosus 10,000 MMU CELLS/CAPSULE PO SCH (20:15)
[2018-12-04 23:00] VITALS: BP 110/65
[2018-12-05] VITALS (8 sets, daily range): BP systolic 77–123; BP diastolic 45–79
[2018-12-05 05:32] LABS: BASOPHILS % (AUTO) 0.2 % (0-1); EOSINOPHILS % (AUTO) 0.5 % (0-6); HEMATOCRIT 34.8 % (42.0-52.0); HEMOGLOBIN 11.6 g/dl (14.0-17.9); LYMPHOCYTES # (AUTO) 0.8 X10'3 (1.1-4.8); LYMPHOCYTES % (AUTO) 7.8 % (21-51); MEAN CORPUSCULAR HEMOGLOBIN 30.3 PG (27.0-31.0); MEAN CORPUSCULAR HGB CONC 33.4 g/dL (33.0-36.5); MEAN CORPUSCULAR VOLUME 90.6 FL (78-98); MEAN PLATELET VOLUME 7.4 FL (7.4-10.4); MONOCYTES # (AUTO) 0.9 X10'3 (0-0.9); MONOCYTES % (AUTO) 9.2 % (2-12); NEUTROPHILS # (AUTO) 8.4 X10'3 (1.8-7.7); NEUTROPHILS % (AUTO) 82.3 % (42-75); PLATELET COUNT 165 X10'3 (140-440); RED BLOOD COUNT 3.84 X10'6 (4.70-6.10); RED CELL DISTRIBUTION WIDTH 17.6 % (11.5-14.5); WHITE BLOOD COUNT 10.2 X10'3 (4.5-11.0)
[2018-12-05 05:38] LABS: ALBUMIN 1.8 G/DL (3.4-5.0); ANION GAP 3 (8-16); BLOOD UREA NITROGEN 29 MG/DL (7-18); BUN/CREATININE RATIO 35.4 (5.4-32.0); CALCIUM 8.3 MG/DL (8.5-10.1); CHLORIDE 114 MMOL/L (99-107); CREATININE 0.82 MG/DL (0.60-1.10); GLUCOSE 182 MG/DL (70-104); POTASSIUM 4.4 MMOL/L (3.5-5.1); SODIUM 150 MMOL/L (135-145); TOTAL CARBON DIOXIDE 32.7 MMOL/L (24-32); eGFR > 90 ML/MIN
--- NOTE | 2018-12-05 06:00 | NUR ---
Patient in room PCU 3010. I have received report from Arjun HOOPER and had the opportunity to ask questions and assume patient care.
[2018-12-05] MEDS ORDERED: furosemide 20 MG/2 ML vial IV ONE (07:50)
[2018-12-05] MEDS: guaiFENesin ER 600mg tablet PO SCH ×2 (08:00→19:35)
[2018-12-05] MEDS: apixaban 2.5mg tablet PO SCH ×2 (08:00→20:00)
[2018-12-05] MEDS: docusate sod 100mg capsule PO SCH ×2 (08:00→20:00)
[2018-12-05] MEDS: lactobacillus rhamnosus 10,000 MMU CELLS/CAPSULE PO SCH ×2 (08:00→20:00)
[2018-12-05] MEDS: azithromycin 250mg tablet PO SCH (08:00)
[2018-12-05] MEDS: magnesium hydroxide 30ml (MOM) UD suspension PO SCH ×2 (08:00→20:00)
[2018-12-05 08:36] LABS: ANISOCYTOSIS 1+; NUCLEATED RED BLOOD CELLS 1 /100WBC (0-0); PLATELET ESTIMATE NORMAL; TOTAL CELLS COUNTED 100
[2018-12-05] MEDS: CefTRIAXone 2gm/D5W 50ml 50 ML IV SCH (09:25)
[2018-12-05] MEDS: morphine ER 15mg tablet PO SCH (09:32)
--- NOTE | 2018-12-05 12:21 | NUR ---
Calorie count day 3: Received documentation from RN containing PO intake for breakfast and lunch 12/04. Pt consumed 263 kcal and 11.2 g protein and breakfast however refused all lunch. Noted that pt documented with 75% PO intake of starch/soup and protein at dinner last night, this is equivalent to roughly 180 kcal and 12 g protein resulting in total intake of 443 kcal and 23.2 g protein for 12/04 not meeting nutrient needs. D/w RN today who states pt drank 3/4 of apple juice and ate Ensure pudding at breakfast this morning. ONS still pending verification by MD, d/w RN who states she will d/w MD. If MD does not verify supplement RN to place ONS recommendation so that pt can start receiving Ensure Enlive. Calorie count now complete. Noted that most PO meds were not administered today d/t reported inability to swallow, per RN pt took multiple attempts to take PO Morphine then pt refused to take additional PO meds although pt was sat completely upright. It appears there is not change in patient's ability to swallow however just a change it patient's desire for PO intake. I do not believe pt would be a good candidate for TF at this time given current mentation. Per RN pt s/p rapid response yesterday and was on BiPAP over night, now with nasal cannula. Per MD notes pt not a candidate for chemo d/t his current functional status however Port-A-Cath to be placed at a later time if patient improves and candidate for chemotherapy. LB 12/04. Will continue to follow. Addendum: 12/05/18 at [address] Amended: Links added.
--- NOTE | 2018-12-05 12:35 | NUR ---
Page to Dr Blackwell re: Room 3010 Javier Monet, bp dropped 77/45, elevated legs bp then 86/50, please advise Enedina [phone] Addendum: 12/05/18 at 1325 by Enedina Kay RN Dr Blackwell arrived to see patient new orders for 500ml bolus of NS, placed patient back on bipap
--- NOTE | 2018-12-05 12:41 | NUR ---
PRESSURE ULCER EDUCATION: DEFINITION: A pressure ulcer is an area of skin that breaks down when you stay in one position too long. The constant pressure against the skin reduces the blood flow to that area and the affected tissue dies. CAUSES: "Being bedridden or in a wheelchair "Fragile skin "Having a chronic condition, such as diabetes or vascular disease "Inability to move certain parts of your body without assistance "Older age "Incontinence of urine or stool SYMPTOMS: "A reddened area that DOES NOT turn white when pressed on - this can be the beginning of a pressure ulcer "A blister, deep sore or a crater - these can be advanced pressure ulcers FIRST AID: "Relieve the pressure on this area "Keep the area clean and dry "Call your primary doctor if you see any of the above symptoms "DO NOT massage the area "DO NOT use a donut shaped or ring shaped pillow- these actually interfere with the blood flow and cause complications PREVENTION: "Check for pressure ulcers everyday "Change position at least every two hours to relieve pressure "Use items that help relieve pressure- pillows, sheepskin, foam padding, and powders. "Keep skin clean and dry "Eat healthy well balanced meals "Exercise daily IF YOU SEE ANY OF THESE SYMPTOMS WHILE IN THE HOSPITAL - TELL YOUR NURSE IMMEDIATELY. IF YOU SEE ANY OF THESE SYMPTOMS WHILE AT HOME OR HAVE ANY QUESTIONS OR CONCERNS ABOUT PRESSURE ULCERS - CALL YOUR PRIMARY DOCTOR IMMEDIATELY. Addendum: 12/05/18 at 1241 by Joyce Knutson RN Amended: Links added.
[2018-12-05] MEDS ORDERED: normal saline 500ml IV soln 500 ML IV ONE (13:00)
[2018-12-05] MEDS: lactose-reduced food (Ensure Enlive) - 237ml bottle PO SCH ×2 (13:00→18:00)
--- NOTE | 2018-12-05 18:00 | NUR ---
Problems reprioritized. Patient report given, questions answered & plan of care reviewed with Hubert RN.
--- NOTE | 2018-12-05 18:20 | NUR ---
Patient in room PCU 3010. I have received report from Enedina HOOPER and had the opportunity to ask questions and assume patient care.
--- NOTE | 2018-12-05 19:49 | NUR ---
medication wasted eliquis, culturelle, colace, and 1/2 tab of mucinex had to be wasted, packages opened but pt unable to swallow them
[2018-12-06 03:00] VITALS: BP 104/58
[2018-12-06 06:00] VITALS: BP 109/77
--- NOTE | 2018-12-06 06:00 | NUR ---
Patient in room PCU 3010. I have received report from Hubert RN and had the opportunity to ask questions and assume patient care.
[2018-12-06 06:03] LABS: BASOPHILS # (AUTO) 0.1 X10'3 (0-0.2); BASOPHILS % (AUTO) 0.5 % (0-1); EOSINOPHILS % (AUTO) 0.3 % (0-6); HEMATOCRIT 34.7 % (42.0-52.0); HEMOGLOBIN 11.4 g/dl (14.0-17.9); LYMPHOCYTES # (AUTO) 1.2 X10'3 (1.1-4.8); LYMPHOCYTES % (AUTO) 8.9 % (21-51); MEAN CORPUSCULAR HEMOGLOBIN 29.6 PG (27.0-31.0); MEAN CORPUSCULAR HGB CONC 32.8 g/dL (33.0-36.5); MEAN CORPUSCULAR VOLUME 90.4 FL (78-98); MEAN PLATELET VOLUME 7.7 FL (7.4-10.4); MONOCYTES # (AUTO) 1.2 X10'3 (0-0.9); MONOCYTES % (AUTO) 8.8 % (2-12); NEUTROPHILS % (AUTO) 81.5 % (42-75); PLATELET COUNT 178 X10'3 (140-440); RED BLOOD COUNT 3.85 X10'6 (4.70-6.10); RED CELL DISTRIBUTION WIDTH 17.5 % (11.5-14.5); WHITE BLOOD COUNT 13.5 X10'3 (4.5-11.0)
--- NOTE | 2018-12-06 06:22 | NUR ---
Problems reprioritized. Patient report given, questions answered & plan of care reviewed with Enedina HOOPER.
[2018-12-06 06:42] LABS: ALBUMIN 1.8 G/DL (3.4-5.0); ANION GAP 6 (8-16); BLOOD UREA NITROGEN 37 MG/DL (7-18); BUN/CREATININE RATIO 31.4 (5.4-32.0); CHLORIDE 115 MMOL/L (99-107); CREATININE 1.18 MG/DL (0.60-1.10); GLUCOSE 183 MG/DL (70-104); POTASSIUM 4.3 MMOL/L (3.5-5.1); SODIUM 154 MMOL/L (135-145); TOTAL CARBON DIOXIDE 32.6 MMOL/L (24-32); eGFR 62 ML/MIN
[2018-12-06] MEDS: apixaban 2.5mg tablet PO SCH ×2 (08:00→20:00)
[2018-12-06] MEDS: azithromycin 250mg tablet PO SCH (08:00)
[2018-12-06] MEDS: lactobacillus rhamnosus 10,000 MMU CELLS/CAPSULE PO SCH ×2 (08:00→20:00)
[2018-12-06] MEDS: docusate sod 100mg capsule PO SCH ×2 (08:00→20:00)
[2018-12-06] MEDS: magnesium hydroxide 30ml (MOM) UD suspension PO SCH ×2 (08:00→20:00)
[2018-12-06] MEDS: guaiFENesin ER 600mg tablet PO SCH ×2 (08:00→20:00)
[2018-12-06] MEDS: lactose-reduced food (Ensure Enlive) - 237ml bottle PO SCH ×3 (08:00→18:00)
[2018-12-06 08:06] LABS: ANISOCYTOSIS 1+; PLATELET ESTIMATE NORMAL; TOTAL CELLS COUNTED 100
[2018-12-06] MEDS: CefTRIAXone 2gm/D5W 50ml 50 ML IV SCH (09:39)
--- NOTE | 2018-12-06 10:00 | NUR ---
patient lethargic but nods answers to simple questions, verbalized "no" when asked if he wanted to eat breakfast, declined ensure, declined medications but agreed to IV antibiotic
[2018-12-06 11:00] VITALS: BP 103/67
[2018-12-06 15:00] VITALS: BP 110/69
[2018-12-06 18:00] VITALS: BP 114/71
--- NOTE | 2018-12-06 18:00 | NUR ---
Problems reprioritized. Patient report given, questions answered & plan of care reviewed with Hubert RN.
--- NOTE | 2018-12-06 18:30 | NUR ---
Patient in room PCU 3010. I have received report from Enedina HOOPER and had the opportunity to ask questions and assume patient care.
[2018-12-06 23:00] VITALS: BP 109/59
[2018-12-07] VITALS (7 sets, daily range): BP systolic 82–111; BP diastolic 51–73
--- NOTE | 2018-12-07 06:13 | NUR ---
Patient in room PCU 3010. I have received report from RUFUS Gaspar and had the opportunity to ask questions and assume patient care.
--- NOTE | 2018-12-07 06:17 | NUR ---
Problems reprioritized. Patient report given, questions answered & plan of care reviewed with aLdy HOOPER.
[2018-12-07] MEDS: guaiFENesin ER 600mg tablet PO SCH ×2 (08:00→20:00)
[2018-12-07] MEDS: CefTRIAXone 2gm/D5W 50ml 50 ML IV SCH (08:00)
[2018-12-07] MEDS: lactose-reduced food (Ensure Enlive) - 237ml bottle PO SCH ×6 (08:00→18:00)
[2018-12-07] MEDS: lactobacillus rhamnosus 10,000 MMU CELLS/CAPSULE PO SCH ×2 (08:00→20:00)
[2018-12-07] MEDS: docusate sod 100mg capsule PO SCH ×2 (08:00→20:00)
[2018-12-07] MEDS: azithromycin 250mg tablet PO SCH (08:00)
[2018-12-07] MEDS: magnesium hydroxide 30ml (MOM) UD suspension PO SCH ×2 (08:00→20:00)
[2018-12-07] MEDS: apixaban 2.5mg tablet PO SCH ×2 (08:00→20:00)
--- NOTE | 2018-12-07 09:30 | NUR ---
Dr. Rios at nurses station. notified by this RN of pt's increased somnolence & inability to take PO meds.
[2018-12-07] MEDS ORDERED: sodium chloride 0.45% 1,000 ML IV SCH (17:25)
--- NOTE | 2018-12-07 17:26 | NUR ---
Paged Dr. Rios re obtaining ABG and/or daily labs. PAGER ID: [phone] MESSAGE: Aj Monet in 3009. Would you like an ABG and/or daily labs on him? Thanks!
[2018-12-07] MEDS ORDERED: HYDROcodone/acetaminophen 5mg/325mg tablet PO PRN (17:30)
[2018-12-07] MEDS ORDERED: HYDROcodone/acetaminophen 10/325mg tab PO PRN (17:30)
[2018-12-07] MEDS ORDERED: morphine 2 MG/ML inj. syringe IV PRN ×2 (17:30)
--- NOTE | 2018-12-07 18:00 | NUR ---
Patient in room PCU 3010. I have received report from Laura HOOPER and had the opportunity to ask questions and assume patient care.
[2018-12-07 18:02] LABS: BASOPHILS # (AUTO) 0.1 X10'3 (0-0.2); BASOPHILS % (AUTO) 0.4 % (0-1); EOSINOPHILS # (AUTO) 0.2 X10'3 (0-0.9); EOSINOPHILS % (AUTO) 1.1 % (0-6); HEMATOCRIT 36.9 % (42.0-52.0); HEMOGLOBIN 11.8 g/dl (14.0-17.9); LYMPHOCYTES # (AUTO) 1.1 X10'3 (1.1-4.8); LYMPHOCYTES % (AUTO) 7.7 % (21-51); MEAN CORPUSCULAR HEMOGLOBIN 29.7 PG (27.0-31.0); MEAN CORPUSCULAR HGB CONC 32.1 g/dL (33.0-36.5); MEAN CORPUSCULAR VOLUME 92.7 FL (78-98); MEAN PLATELET VOLUME 8.5 FL (7.4-10.4); MONOCYTES # (AUTO) 0.9 X10'3 (0-0.9); MONOCYTES % (AUTO) 6.2 % (2-12); NEUTROPHILS # (AUTO) 12.6 X10'3 (1.8-7.7); NEUTROPHILS % (AUTO) 84.6 % (42-75); PLATELET COUNT 127 X10'3 (140-440); RED BLOOD COUNT 3.98 X10'6 (4.70-6.10); RED CELL DISTRIBUTION WIDTH 17.8 % (11.5-14.5); WHITE BLOOD COUNT 14.9 X10'3 (4.5-11.0)
[2018-12-07 18:11] LABS: ALBUMIN 1.6 G/DL (3.4-5.0); ANION GAP 9 (8-16); BLOOD UREA NITROGEN 52 MG/DL (7-18); BUN/CREATININE RATIO 38.2 (5.4-32.0); CALCIUM 7.8 MG/DL (8.5-10.1); CHLORIDE 122 MMOL/L (99-107); CREATININE 1.36 MG/DL (0.60-1.10); GLUCOSE 174 MG/DL (70-104); TOTAL CARBON DIOXIDE 30.6 MMOL/L (24-32); eGFR 52 ML/MIN
[2018-12-07 18:13] LABS: POTASSIUM 4.1 MMOL/L (3.5-5.1)
[2018-12-07 18:16] LABS: SODIUM 162 MMOL/L (135-145)
--- NOTE | 2018-12-07 18:22 | NUR ---
PAGER ID: [phone] MESSAGE: [phone] Javier Monet. Critical sodium level 162. Scarlett HOOPER
--- NOTE | 2018-12-07 18:44 | NUR ---
Problems reprioritized. Patient report given, questions answered & plan of care reviewed with RUFUS Pantoja.
--- NOTE | 2018-12-07 18:45 | NUR ---
MD Rios called back about the critical sodium, she stated for no changes in the 0.45 Normal Saline going at 50 ml/hr and to wait for 12/08/18 morning lab results.
[2018-12-07 19:38] LABS: NUCLEATED RED BLOOD CELLS 2 /100WBC (0-0); TOTAL CELLS COUNTED 100
[2018-12-07 19:39] LABS: PLATELET ESTIMATE DECREASED
[2018-12-07 19:40] LABS: ANISOCYTOSIS 1+
[2018-12-07 19:41] LABS: HYPOCHROMASIA 1+; TARGET CELLS FEW
[2018-12-07 19:51] LABS: ABG BASE EXCESS 8.2 mmol/L (-2.0-3.0); ABG HCO3 32.1 mmol/L (22.0-26.0); ABG PCO2 (T) 44.1 mmHg (35.0-45.0); ABG PH (T) 7.485 (7.350-7.450); ABG PO2 (T) 74.9 mmHg (83-108); ALLEN'S TEST Positive; FCOHb 0.3 % (0.5-1.5); FMetHb 0.3 % (0.3-1.12); FO2Hb 93.4 % (94-100); PATIENT TEMPERATURE 38.2; RESPIRATORY RATE 16 b/min; RESPIRATORY RATE (OBSERVED) 30 b/min; TOTAL HEMOGLOBIN 12.3 G/dl (14.0-17.9)
[2018-12-08] VITALS (7 sets, daily range): BP systolic 66–107; BP diastolic 44–73
--- NOTE | 2018-12-08 06:39 | NUR ---
Problems reprioritized. Patient report given, questions answered & plan of care reviewed with Molly RN.
--- NOTE | 2018-12-08 06:42 | NUR ---
Patient in room PCU 3009. I have received report from RUFUS Pantoja and had the opportunity to ask questions and assume patient care.
[2018-12-08] MEDS: lactobacillus rhamnosus 10,000 MMU CELLS/CAPSULE PO SCH (08:00)
[2018-12-08] MEDS: guaiFENesin ER 600mg tablet PO SCH (08:00)
[2018-12-08] MEDS: magnesium hydroxide 30ml (MOM) UD suspension PO SCH (08:00)
[2018-12-08] MEDS: apixaban 2.5mg tablet PO SCH (08:00)
[2018-12-08] MEDS: docusate sod 100mg capsule PO SCH (08:00)
[2018-12-08] MEDS: lactose-reduced food (Ensure Enlive) - 237ml bottle PO SCH ×2 (08:00)
[2018-12-08] MEDS: azithromycin 250mg tablet PO SCH (08:00)
[2018-12-08] MEDS: CefTRIAXone 2gm/D5W 50ml 50 ML IV SCH (08:42)
[2018-12-08 09:29] LABS: BASOPHILS # (AUTO) 0.1 X10'3 (0-0.2); BASOPHILS % (AUTO) 0.8 % (0-1); EOSINOPHILS # (AUTO) 0.2 X10'3 (0-0.9); EOSINOPHILS % (AUTO) 1.6 % (0-6); HEMOGLOBIN 11.8 g/dl (14.0-17.9); LYMPHOCYTES # (AUTO) 1.2 X10'3 (1.1-4.8); LYMPHOCYTES % (AUTO) 7.7 % (21-51); MEAN CORPUSCULAR HEMOGLOBIN 29.5 PG (27.0-31.0); MEAN CORPUSCULAR HGB CONC 31.8 g/dL (33.0-36.5); MEAN CORPUSCULAR VOLUME 92.8 FL (78-98); MEAN PLATELET VOLUME 8.6 FL (7.4-10.4); MONOCYTES % (AUTO) 6.4 % (2-12); NEUTROPHILS # (AUTO) 13.1 X10'3 (1.8-7.7); NEUTROPHILS % (AUTO) 83.5 % (42-75); PLATELET COUNT 107 X10'3 (140-440); RED BLOOD COUNT 3.99 X10'6 (4.70-6.10); WHITE BLOOD COUNT 15.7 X10'3 (4.5-11.0)
[2018-12-08 09:54] LABS: ALANINE AMINOTRANSFERASE 198 U/L (12-78); ALBUMIN 1.6 G/DL (3.4-5.0); ALBUMIN/GLOBULIN RATIO 0.5 (1.1-1.5); ANION GAP 9 (8-16); ASPARTATE AMINO TRANSFERASE 256 U/L (10-37); BILIRUBIN,TOTAL 2.9 MG/DL (0.1-1.0); BLOOD UREA NITROGEN 67 MG/DL (7-18); BUN/CREATININE RATIO 41.1 (5.4-32.0); CALCIUM 7.7 MG/DL (8.5-10.1); CHLORIDE 123 MMOL/L (99-107); CREATININE 1.63 MG/DL (0.60-1.10); GLUCOSE 181 MG/DL (70-104); POTASSIUM 4.1 MMOL/L (3.5-5.1); TOTAL CARBON DIOXIDE 32.9 MMOL/L (24-32); TOTAL PROTEIN 4.8 G/DL (6.4-8.2); eGFR 42 ML/MIN
[2018-12-08 09:58] LABS: SODIUM 165 MMOL/L (135-145)
--- NOTE | 2018-12-08 10:05 | NUR ---
Sent to Dr Jara PAGER ID: [phone] MESSAGE: RE: Javier Monet 7521. CRITICAL VALUE: Na up to 165. -Molly [phone]
--- NOTE | 2018-12-08 10:23 | NUR ---
Sent to Dr Jara PAGER ID: [phone] MESSAGE: RE: Javier Monet 3180. is on board with comfort care. Please advise. -Molly [phone]
[2018-12-08 10:27] LABS: ALKALINE PHOSPHATASE 3524 IU/L (46-116)
--- NOTE | 2018-12-08 10:38 | NUR ---
Pt placed on comfort care. Pt is still on BiPAP so that the rest of the family has a chance to say their goodbyes. Per Marek, expiration may happen quickly once pt is taken off BiPAP.
[2018-12-08] MEDS ORDERED: LORazepam 2 mg/ml vial IV PRN (10:40)
[2018-12-08] MEDS ORDERED: morphine 10mg/ml inj. IV PRN ×2 (10:40→11:10)
[2018-12-08] MEDS ORDERED: morphine 10mg/0.5ml (conc. morphine) oral syringe PO PRN (10:40)
[2018-12-08 11:32] LABS: NUCLEATED RED BLOOD CELLS 2 /100WBC (0-0); SMUDGE CELLS 1+; TOTAL CELLS COUNTED 100
[2018-12-08 11:33] LABS: ANISOCYTOSIS 1+; HYPOCHROMASIA 1+; PLATELET ESTIMATE DECREASED; TARGET CELLS FEW; TOXIC GRANULATION 1+
[2018-12-08 11:34] LABS: POLYCHROMASIA FEW; TOXIC VACUOLATION FEW
--- NOTE | 2018-12-08 14:31 | NUR ---
Attempted to come by and see pt, though noted pt is not on comfort care measures with family present in room.
--- NOTE | 2018-12-08 14:34 | NUR ---
Pt has been made DNR w/ comfort care. [facility] 12/06. Will continue to follow per protocol. Addendum: 12/08/18 at [address] Amended: Links added.
--- NOTE | 2018-12-08 15:41 | NUR ---
Sent to Dr Jara PAGER ID: [phone] MESSAGE: RE: Javier Monet 3010. Pt off Bipap ~1430. Titrated down to 2L NC from 6L. Family at bedside. -Molly [phone]
--- NOTE | 2018-12-08 17:06 | NUR ---
Sent to Dr Jara PAGER ID: [phone] MESSAGE: RE: Javier Monet [phone]. Time of 1645. -Molly [phone]
--- NOTE | 2018-12-08 17:23 | NUR ---
Sent to Dr Jara PAGER ID: [phone] MESSAGE: RE: Javier Monet 9511. Was sepsis a part of the pt's ? Can you rule out sepsis at the time of ? [facility] needs to know. -Molly [phone]
--- NOTE | 2018-12-08 17:55 | NUR ---
RN IS TO DOCUMENT YES TO ALL APPLICABLE AREAS Pronouncement of : 1. Time Physician Notified: 1705 2. Date of : 12/08/18 3. Time of : 1653 4. DNR/Withdraw life support documented: Yes 5. Monitor strip has been placed on chart: Yes 6. Assessment process is of one-minute duration and includes following criteria: a) Patient is unresponsive to all stimuli: Yes b) Pupils fixed and non-reactive: Yes c) Auscultation of precordium reveals absence of heart tones: Yes d) Auscultation of lungs reveals absence of breath sounds: Yes e) Absence of blood pressure / all vital signs: Yes f) QRS complexes are not present on monitor / EKG strip: Yes g) Pacer spikes without capture: 4. Comments: Inder Escobar and I listened to heart tones for one minute. Absence of heart tones noted.
== END 2018-12-08 19:10 | disposition expired | DRG 871 ==
LOC: ER 09:56 → PCU 3S 15:00 → CMPBEDREQ 21:12 → PCU 3S 12-02 00:04
PROVIDERS: ADMIT Internal Medicine; ATTEND Family Medicine
PROC: 5A09357 Assistance with Respiratory Ventilation, Less than 24 Consecutive Hours, Continuous Positive Airway Pressure (ICD-10-PCS; principal; 2018-12-04)
PROC: 5A09457 Assistance with Respiratory Ventilation, 24-96 Consecutive Hours, Continuous Positive Airway Pressure (ICD-10-PCS; 2018-12-05)
DX: A41.9 Sepsis, unspecified organism (principal); J18.9 Pneumonia, unspecified organism; J96.01 Acute respiratory failure with hypoxia; G93.41 Metabolic encephalopathy; E43 Unspecified severe protein-calorie malnutrition; J96.02 Acute respiratory failure with hypercapnia; C79.51 Secondary malignant neoplasm of bone; Z68.1 Body mass index [BMI] 19.9 or less, adult; C18.9 Malignant neoplasm of colon, unspecified; C78.7 Secondary malignant neoplasm of liver and intrahepatic bile duct; E87.0 Hyperosmolality and hypernatremia; K74.60 Unspecified cirrhosis of liver; E86.0 Dehydration; K59.00 Constipation, unspecified; D63.1 Anemia in chronic kidney disease; Z51.5 Encounter for palliative care; N18.9 Chronic kidney disease, unspecified; Z66 Do not resuscitate; G89.29 Other chronic pain; M54.9 Dorsalgia, unspecified; R31.9 Hematuria, unspecified; Z86.718 Personal history of other venous thrombosis and embolism; Z87.891 Personal history of nicotine dependence; Z80.0 Family history of malignant neoplasm of digestive organs; Z80.9 Family history of malignant neoplasm, unspecified; Z79.899 Other long term (current) drug therapy; Z79.01 Long term (current) use of anticoagulants
CPT/HCPCS: 36415; 36600; 71045; 80048; 80053; 80305; 80320; 81001; 82140; 82803; 83605; 83735; 83880; 84145; 84484; 85018; 85025; 85610; 85730; 87040; 87081; 92508; 92616; 93005; 94660; 94760; 96361; 96365; 97116; 97163; 97530; 99285; G0378; J0456; J0696; J1940; J2060; J2270; J7030

== ENCOUNTER → 2018-12-01 | Day surgery (SDC) | payer MEDICARE ==
[~2018-12-01] VITALS: Ht 182.9 cm; Wt 62.4 kg
[~2018-12-01] MED LIST changes: +APIX2.5T PO; +BICA50TA7 PO; -CYCL-1 PO; +HYDR-4353 PO; +HYDR4TAB45 PO; +HYDROMORPHONE PO; +MORP-92 PO; +OXYC-150 PO; +normal saline 1000ml 1,000 ML IV ONE; +normal saline 1000ml 1,000 ML IV SCH
[2018-12-01 07:02] VITALS: BP 101/57
[2018-12-01 07:46] LABS: BASOPHILS # (AUTO) 0.1 X10'3 (0-0.2); BASOPHILS % (AUTO) 0.5 % (0-1); EOSINOPHILS # (AUTO) 0.1 X10'3 (0-0.9); EOSINOPHILS % (AUTO) 0.3 % (0-6); HEMATOCRIT 43.2 % (42.0-52.0); HEMOGLOBIN 14.3 g/dl (14.0-17.9); LYMPHOCYTES # (AUTO) 1.1 X10'3 (1.1-4.8); LYMPHOCYTES % (AUTO) 4.5 % (21-51); MEAN CORPUSCULAR HEMOGLOBIN 29.4 PG (27.0-31.0); MEAN CORPUSCULAR HGB CONC 33.1 g/dL (33.0-36.5); MEAN CORPUSCULAR VOLUME 88.9 FL (78-98); MEAN PLATELET VOLUME 6.8 FL (7.4-10.4); MONOCYTES # (AUTO) 1.5 X10'3 (0-0.9); MONOCYTES % (AUTO) 6.3 % (2-12); NEUTROPHILS # (AUTO) 20.7 X10'3 (1.8-7.7); NEUTROPHILS % (AUTO) 88.4 % (42-75); PLATELET COUNT 396 X10'3 (140-440); RED BLOOD COUNT 4.87 X10'6 (4.70-6.10); RED CELL DISTRIBUTION WIDTH 15.9 % (11.5-14.5); WHITE BLOOD COUNT 23.4 X10'3 (4.5-11.0)
--- NOTE | 2018-12-01 09:00 | NUR ---
MD Mayberry at bedside
--- NOTE | 2018-12-01 09:10 | NUR ---
NEW ORDERS GIVEN, PER DR. WIGGINS.
--- NOTE | 2018-12-01 09:50 | NUR ---
PT TRANSFERRED TO ED PER MD ROSALIE. Problems reprioritized. Patient report given, questions answered & plan of care reviewed with LAWRENCE Gonzalez.
[2018-12-01 10:29] LABS: NUCLEATED RED BLOOD CELLS 1 /100WBC (0-0); TOTAL CELLS COUNTED 100
[2018-12-01 10:30] LABS: PLATELET ESTIMATE NORMAL
== END | disposition home or self-care (01) ==
LOC: SSTAY O 07:10
PROVIDERS: ATTEND Radiology Diagnostic Radiology
DX: C18.4 Malignant neoplasm of transverse colon (principal); C78.7 Secondary malignant neoplasm of liver and intrahepatic bile duct; C79.51 Secondary malignant neoplasm of bone; Z79.899 Other long term (current) drug therapy
CPT/HCPCS: 36415; 85025; J7030